=== PATIENT | male | born 1935 | race Caucasian/White ===

== ENCOUNTER 2017-08-12 05:14 | Inpatient (IN) ==
--- NOTE | 2017-08-10 16:00 | EKG Report ---
Test Performed on : 08/10/2017 2:51:10 PM Test Reason : PAT Blood Pressure : / mmHG Vent. Rate : 061 BPM Atrial Rate : 061 BPM P-R Int : 174 ms QRS Dur : 136 ms QT Int : 486 ms P-R-T Axes : 082 -60 052 degrees QTc Int : 489 ms Sinus rhythm. with premature supraventricular complexes. Left axis deviation Nonspecific intraventricular block Cannot rule out Septal infarct , age undetermined Abnormal ECG When compared with ECG of 03-MAR-2017 10:45, Nonspecific intraventricular block has replaced Right bundle branch block Confirmed by Roney Montero MD ([id number]) on 08/12/2017 6:31:06 PM
[2017-08-10 16:52] LABS: MANUAL DIFF NEEDED? NO; URINE MICRO REVIEW NEEDED? NO; URINE SOURCE CLEAN CATCH
[2017-08-10 16:58] LABS: BASO% 0.9 % (0.0-0.8); BILIRUBIN URINE NEGATIVE (NEGATIVE); BLOOD URINE NEGATIVE (NEGATIVE); COLOR YELLOW; EOS# 0.11 X1000 (0.0-0.7); EOS% 1.7 % (0.0-10.0); GLUCOSE URINE NEGATIVE (NEGATIVE); HEMATOCRIT 34.3 % (42.0-52.0); HEMOGLOBIN 11.4 g/dL (14.0-18.0); IMM GRAN# 0.02 X1000 (0.0-0.04); IMM GRAN% 0.3 % (0.0-0.5); LEUKOCYTES URINE NEGATIVE (NEGATIVE); LYMPH# 1.54 X1000 (1.2-3.4); LYMPH% 23.3 % (20.5-51.1); MCH 31.1 PG (27-31); MCHC 33.2 g/dL (33-37); MCV 93.7 FL (81-99); MONO% 9.1 % (1.7-9.3); MPV 12.4 FL (7.4-10.4); NEUT% 64.7 % (42.2-75.2); NITRITE URINE NEGATIVE (NEGATIVE); PLT 200 X1000 (130-400); PROTEIN URINE NEGATIVE (NEGATIVE); RBC 3.66 XMIL (4.7-6.1); SP GRAVITY URINE 1.009; TURBIDITY URINE CLEAR (CLEAR); UR EPITHELIAL CELLS <10 /HPF (<10); URINE BACTERIA NEGATIVE /HPF; URINE RBC <10 /HPF (<10); URINE WBC <10 /HPF (<10); UROBILINOGEN URINE NORMAL (NORMAL)
[2017-08-10 17:04] LABS: INR 1.04
[2017-08-10 17:25] LABS: CALCIUM 9.4 mg/dL (8.8-10.2); POTASSIUM 3.6 mmol/L (3.5-5.1)
[2017-08-12] MEDS ORDERED: LYRICA ONE (10:13)
[2017-08-12] MEDS ORDERED: PEPCID ONE (10:13)
[2017-08-12] MEDS ORDERED: REGLAN ONE (10:13)
[2017-08-12] MEDS ORDERED: COLACE ONE (10:13)
[2017-08-12] MEDS ORDERED: LR 1,000 ML ONE (10:14)
[2017-08-12] MEDS ORDERED: CELEBREX ONE (10:14)
[2017-08-12] MEDS ORDERED: DURAMORPH ONE (10:17)
[2017-08-12] MEDS ORDERED: TORADOL ONE (10:17)
[2017-08-12] MEDS ORDERED: SENSORCAINE 0.5%-EPI 1:200,000 ONE (10:18)
[2017-08-12] MEDS ORDERED: EXPAREL 1.3% ONE (10:18)
[2017-08-12] MEDS ORDERED: SODIUM CHLORIDE 0.9% ONE (10:18)
[2017-08-12] MEDS ORDERED: NEOSPORIN G.U. IRRIGANT ONE (10:18)
[2017-08-12] MEDS ORDERED: CYKLOKAPRON 1,000 MG/NS 1,000 MG/100 ML IVPB ONE (10:36)
[2017-08-12] MEDS ORDERED: VANCOMYCIN 1 GM/NS 1 GM/250 ML IVPB ONE (10:52)
[2017-08-12] MEDS ORDERED: VERSED ONE (11:29)
[2017-08-12] MEDS ORDERED: DIPRIVAN 1% ONE (11:30)
[2017-08-12] MEDS ORDERED: FENTANYL ONE (11:30)
[2017-08-12] MEDS ORDERED: QUELICIN (DOSE) ONE (11:32)
[2017-08-12] MEDS ORDERED: XYLOCAINE-MPF 2% ONE (11:32)
[2017-08-12] MEDS: VANCOMYCIN ONE ×2 (11:40→13:44)
[2017-08-12] MEDS ORDERED: ZEMURON ONE (12:58)
[2017-08-12 13:29] LABS: URINE MICRO REVIEW NEEDED? NO; URINE SOURCE CATH
[2017-08-12] MEDS ORDERED: EPHEDRINE ONE (13:35)
[2017-08-12] MEDS ORDERED: LASIX ONE (13:42)
[2017-08-12 13:52] LABS: BILIRUBIN URINE NEGATIVE (NEGATIVE); BLOOD URINE NEGATIVE (NEGATIVE); COLOR YELLOW; GLUCOSE URINE NEGATIVE (NEGATIVE); LEUKOCYTES URINE NEGATIVE (NEGATIVE); NITRITE URINE NEGATIVE (NEGATIVE); PROTEIN URINE TRACE mg/dL (NEGATIVE); SP GRAVITY URINE 1.014; TURBIDITY URINE CLEAR (CLEAR); UROBILINOGEN URINE NORMAL (NORMAL)
[2017-08-12 13:53] LABS: UR EPITHELIAL CELLS <10 /HPF (<10); URINE BACTERIA NEGATIVE /HPF; URINE RBC <10 /HPF (<10); URINE WBC <10 /HPF (<10)
[2017-08-12] MEDS ORDERED: NEOSTIGMINE ONE (13:56)
[2017-08-12] MEDS ORDERED: ROBINUL ONE (13:56)
--- NOTE | 2017-08-12 15:23 | Diag Imaging Result Doc PS360 ---
SHOULDER 1 VIEW RIGHT - 08/12/2017 INDICATION: REVERSE TOTAL SHOULDER TECHNIQUE: COMPARISON: 05/09/2015 FINDINGS: There is a right total shoulder arthroplasty. Alignment appears anatomic. No hardware fracture or loosening. IMPRESSION: No complication. Electronically signed by Param Meade 08/12/2017 3:21 PM
[2017-08-12] MEDS ORDERED: NS 1,000 ML ONE (15:36)
[2017-08-12] MEDS ORDERED: MORPHINE IV PRN (16:39)
[2017-08-12] MEDS ORDERED: OXY IR PO PRN (16:39)
[2017-08-12] MEDS ORDERED: ZOFRAN PO PRN (16:45)
[2017-08-12] MEDS ORDERED: MILK OF MAGNESIA PO PRN (16:45)
[2017-08-12] MEDS ORDERED: ZOFRAN IV PRN (16:45)
[2017-08-12] MEDS: APRESOLINE PO SCH ×2 (18:24→20:04)
[2017-08-12] MEDS: FERROUS SULFATE PO SCH (18:24)
[2017-08-12] MEDS: NS 1,000 ML IV SCH (18:25)
--- NOTE | 2017-08-12 19:37 | OPERATIVE NOTE ---
PROCEDURE DATE: 08/12/2017 PREOPERATIVE DIAGNOSIS: Painful right reverse shoulder arthroplasty. POSTOPERATIVE DIAGNOSIS: Failed right reverse shoulder arthroplasty. PROCEDURE: Revision of glenosphere and polyethylene of the right reverse total shoulder arthroplasty and removal of inferior osteophyte. SURGEONS: Hardeep Brady MD. FIRST ASSISTANTS: JOSE Hyde. SECOND RESIN REMOVER: Miguelito Carbone RN. ANESTHESIA: General. IV FLUIDS: Was 1900 mL of lactated Ringer. ESTIMATED BLOOD LOSS: Is 120 mL. COMPLICATIONS: None. INDICATION: The patient is a pleasant, 82-year-old male who is 2 years status post right reverse total shoulder arthroplasty. The patient has had a chronic history of pain and discomfort in his right shoulder. Given the patient's significant continued pain and discomfort recommendation to proceed with polyethylene exchange and removal of osteophyte and possible revision. The patient has continued pain and discomfort and x-rays revealed no obvious abnormality and previous bone scan revealed no obvious loosening. Given the patient's continued pain and discomfort recommendation to proceed with surgical management was offered. Risks and benefits of surgery were explained, including the risks of anesthesia, , bleeding, infection, failure to relieve pain, postop stiffness, nerve injury, blood clots, and other imponderables. All questions were answered. The patient and family wished to proceed with surgery. DETAILS OF THE OPERATION: Patient was taken to the operating room and placed supine on operating table. Once adequate anesthesia was obtained, the patient was placed in semi- [place] beach-chair position. The right shoulder was subsequently prepped and draped in usual sterile fashion. A standard deltopectoral incision made through the previous surgical incision. Hemostasis was obtained using electrocautery. The deltopectoral interval was then developed. Some overlying tissue at the site of the joint was incised and there was some synovial fluid visualized. Intraoperative cultures were obtained. There were no signs or symptoms of infection. After adequate elevation of the soft tissue deep, inspection of the glenosphere revealed the eccentricity was superiorly and had some evidence of loosening of the glenosphere. The shoulder was then dislocated anteriorly and the polyethylene had significant wear of the inferior aspect. The cup was then removed. The stem had no evidence of loosening. The glenosphere was then removed. The metaglene and was then inspected and it had good secure fixation and all of the screws were tight. Inspection of the inferior aspect of the glenoid revealed a small inferior spur. A small rongeur was used to debride this. The patient had no further obvious evidence of impingement inferiorly to the glenoid neck. After this had been performed, the wound was copiously irrigated with antibiotic irrigation. An eccentric glenosphere was placed with eccentricity placed inferiorly. After this had been performed, a trial cup size with a 9 mm spacer with a +3 humeral cup had excellent stability and range of motion and was deemed to be the correct size. The trial cups were removed. The wound was copiously irrigated once again with antibiotic pulsatile lavage. The +9 spacer was then placed, followed by the +3 humeral cup. The shoulder was reduced, carried through range of motion, and had excellent stability and range of motion and no evidence of inferior impingement. Exparel was placed in the deep soft tissue, as well as subcutaneous tissue. The wound was copiously irrigated once again. Then 2-0 Vicryl was used to repair the subcutaneous tissue followed by running 2-0 Prolene. Adaptic, sterile 4 x 4s, ABD pad, and tape was applied to the right shoulder, followed by envelope sling. All counts were correct. Patient tolerated the procedure well and was transferred to the recovery room in stable condition. cc: Hardeep Brady MD MTDD
[2017-08-12] MEDS: ZETIA PO SCH (20:08)
[2017-08-12] MEDS: ASPIRIN PO SCH (20:08)
[2017-08-12] MEDS: TYLENOL PO SCH ×2 (20:08→22:19)
[2017-08-12] MEDS: OCUVITE LUTEIN & ZEAXANTHIN PO SCH (20:09)
[2017-08-12] MEDS: TRICOR PO SCH (20:09)
[2017-08-12] MEDS: HYTRIN PO SCH (20:09)
[2017-08-12] MEDS: CENTRUM SILVER PO SCH (20:10)
[2017-08-12] MEDS: ELIQUIS PO SCH ×2 (20:10→21:57)
[2017-08-12] MEDS: DEMADEX PO SCH (20:10)
[2017-08-12] MEDS: ENTRESTO 24 MG-26 MG TABLET PO SCH ×2 (20:10→21:56)
[2017-08-12] MEDS: CULTURELLE PO SCH (20:11)
[2017-08-12] MEDS: CLARITIN PO SCH (20:11)
[2017-08-12] MEDS: CORDARONE PO SCH (20:11)
[2017-08-12] MEDS ORDERED: PRAVACHOL PO SCH (21:00)
[2017-08-12] MEDS: COLACE PO SCH (21:56)
[2017-08-12] MEDS ORDERED: VANCOMYCIN 1 GM/NS 1 GM/250 ML IVPB IV ONE (23:40)
[2017-08-13] MEDS: TYLENOL PO SCH ×2 (04:53→11:20)
[2017-08-13] MEDS: NS 1,000 ML IV SCH (04:53)
[2017-08-13 05:49] LABS: HEMATOCRIT 30.9 % (42.0-52.0); HEMOGLOBIN 10.3 g/dL (14.0-18.0)
[2017-08-13 06:28] LABS: CALCIUM 7.9 mg/dL (8.8-10.2); POTASSIUM 3.4 mmol/L (3.5-5.1)
[2017-08-13 08:09] VITALS: BP 156/68
[2017-08-13] MEDS: ZETIA PO SCH (08:52)
[2017-08-13] MEDS: ELIQUIS PO SCH (08:52)
[2017-08-13] MEDS: OCUVITE LUTEIN & ZEAXANTHIN PO SCH (08:52)
[2017-08-13] MEDS: CULTURELLE PO SCH (08:53)
[2017-08-13] MEDS: DEMADEX PO SCH (08:53)
[2017-08-13] MEDS: FERROUS SULFATE PO SCH (08:53)
[2017-08-13] MEDS: APRESOLINE PO SCH (08:53)
[2017-08-13] MEDS: TRICOR PO SCH (08:54)
[2017-08-13] MEDS: ENTRESTO 24 MG-26 MG TABLET PO SCH (08:54)
[2017-08-13] MEDS: COLACE PO SCH (08:54)
[2017-08-13] MEDS: CLARITIN PO SCH (08:54)
[2017-08-13] MEDS: HYTRIN PO SCH (08:54)
[2017-08-13] MEDS: ASPIRIN PO SCH (08:54)
[2017-08-13] MEDS: CENTRUM SILVER PO SCH (08:54)
[2017-08-13] MEDS ORDERED: PEPCID PO SCH (09:00)
[2017-08-13] MEDS: CORDARONE PO SCH (09:18)
--- NOTE | 2017-08-13 09:24 | PROGRESS NOTE ---
DATE: 08/13/2017 SUBJECTIVE: The patient was 82-year-old male who is 1 day status post revision, right reverse shoulder arthroplasty. He is currently resting comfortably. He has no complaints. PHYSICAL EXAMINATION: The patient's right shoulder dressing is intact. He is able flex now his fingers. He is neurovascularly distally. 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 LABORATORY DATA: Hemoglobin is 10.3, hematocrit is 30.9. IMPRESSION: Postoperative day #1, status post revision right reverse shoulder arthroplasty. PLAN: At this point, we will change his dressing. Discontinue his drain and Hep-Lock his IV. Will plan on discharging home. He will proceed with outpatient physical therapy. He will follow up in the office in 12-14 days. cc: Hardeep Brady MD
--- NOTE | 2017-08-13 10:13 | HISTORY AND PHYSICAL ---
CHIEF COMPLAINT: Right shoulder pain and limited range of motion status post right reverse total shoulder arthroplasty. HISTORY OF PRESENT ILLNESS: Mr. Campbell is an 82-year-old, white male who has experienced right shoulder pain and limited range of motion status post right prosthetic shoulder replacement in April of 2015. Despite conservative therapy, he still has a significant reduction in his ability to utilize his right upper extremity in order to pursue his normal daily activities. He will be admitted at this time for an exchange of his right prosthetic poly insert versus a revision of his right reverse total shoulder arthroplasty. Primary care provider Kellie Jones. ALLERGIES: Keflex. PAST MEDICAL HISTORY: 1. Osteoarthritis. 2. Atrial fibrillation. 3. Hypertension. 4. Coronary artery disease. 5. Congestive heart failure. 6. Gastroesophageal reflux disease. 7. Allergic rhinitis. 8. Dyslipidemia. PAST SURGICAL HISTORY: 1. Right reverse total shoulder arthroplasty. 2. Bilateral total knee arthroplasties. 3. Bilateral knee arthroscopies. 4. Cholecystectomy. 5. Bilateral cataract surgery. 6. Tonsillectomy. SOCIAL HISTORY: The patient is a remote smoker. He is . REVIEW OF SYSTEMS: HEENT: The patient has a history of allergic rhinitis. He also reports a history of macular degeneration. Denies numbness or cerebrovascular disease, recent dizzy spells or syncopal events. Cardiac: He has a history of coronary artery disease, congestive heart failure and atrial fibrillation. He denies chest pain, pressure, or other anginal equivalents at this time. Pulmonary: The patient is a nonsmoker with no reported chronic lung disease. Gastrointestinal: Denies recent nausea, vomiting, diarrhea, or constipation. Genitourinary: No kidney or bladder infection or dysfunction. Neurological: Denies extremity radicular pain, weakness or paresthesia. Musculoskeletal: He is here today with arthritis. He has previously undergone multiple joint operations and here for revision of a painful right total shoulder arthroplasty. Other: He is treated for dyslipidemia. He has previously undergone a diskectomy of the lower spine. PHYSICAL EXAMINATION: GENERAL: The patient is resting comfortably in bed. He is articulate and he has family at bedside. HEENT: He does appear to have some decreased visual acuity. HEENT: Head is normocephalic, atraumatic. Pupils are equal and round. Nares are patent. Throat without exudate. HEART: Regular rate and rhythm. No murmurs, gallops, or rubs. LUNGS: Clear to auscultation bilaterally. GASTROINTESTINAL: Bowel sounds are present. Abdomen is round, it is nontender. GENITOURINARY: Not examined. NEUROLOGIC: Gross motor function is intact of the right upper extremity. MUSCULOSKELETAL: Right shoulder, his previous surgical scar is well healed. He has a good peripheral pulse. IMPRESSION UNDER DIAGNOSIS: Failed right total shoulder arthroplasty. PLAN: Exchange poly versus revision of a right reverse total shoulder arthroplasty. The risks and benefits of surgery were explained to the patient including the risks of anesthesia, , bleeding, infection, damage to tendons, ligaments, nerves, blood vessels, the possibility of blood clots and other imponderables were discussed, and the patient wished to proceed with operative management at this time. Dictated by JOSE Rodriguez for Hardeep Brady MD cc: JOSE Rodriguez MD
== END 2017-08-13 14:56 | disposition home health service (06) ==
LOC: SURHOLD 05:14 → 4N 12:46
PROVIDERS: ADMIT Orthopaedic Surgery Adult Reconstructive Orthopaedic Surgery; ATTEND Orthopaedic Surgery Adult Reconstructive Orthopaedic Surgery